=== PATIENT | male | born 2000 | race Caucasian/White ===

== ENCOUNTER 2024-11-22 23:15 | Emergency (ER) | payer MEDICAID ==
[~2024-11-22] VITALS: Ht 182.9 cm; Wt 100.0 kg
[2024-11-22 23:40] VITALS: BP 144/69; PULSE 91; RESP 20; TEMP 98.7; O2SAT 98
[2024-11-22] MEDS: BACITRACIN ZINC OINT UDPKT TOP ONE (23:45)
[2024-11-22] MEDS: LIDOCAINE HCL/PF 1% 10 MG/ML 5ML VIAL INFIL ONE (23:45)
[2024-11-22] MEDS: TETANUS, DIPHTHERIA, PERTUSSIS VAC/PF 0.5ML (>10YR OLD) IM ONE (23:45)
[2024-11-23] MEDS: ACETAMINOPHEN 500MG TABLET PO ONE
== END 2024-11-23 03:05 | disposition home or self-care (01) ==
LOC: ER 23:15
DX: S01.511A Laceration without foreign body of lip, initial encounter (principal); S09.90XA Unspecified injury of head, initial encounter; F32.A Depression, unspecified; F10.129 Alcohol abuse with intoxication, unspecified; Y04.0XXA Assault by unarmed brawl or fight, initial encounter; Y93.89 Activity, other specified; Y92.89 Other specified places as the place of occurrence of the external cause; Y99.8 Other external cause status; Y90.9 Presence of alcohol in blood, level not specified
CPT/HCPCS: 12013; 12052; 90471; 90715; 99285